=== PATIENT | female | born 1990 | race Caucasian/White ===

== ENCOUNTER 2019-07-26 10:49 | Emergency (ER) | payer OTHER ==
[~2019-07-26] VITALS: Ht 170.2 cm; Wt 56.7 kg
[2019-07-26 10:57] VITALS: BP 128/72
--- NOTE | 2019-07-26 11:08 | NUR ---
PATIENT WHEELCHAIR ASSISTED TO BED 6.
--- NOTE | 2019-07-26 11:31 | NUR ---
PT PRESENTS TO THE ED WITH C/O PALPITATION AND SHAKINESS SINCE 07/17/19. PT STATES THAT SHE HAS BEEN TO 3 HOSPITALS IN THE LAST 7 DAYS. PT WAS SEEN BY PCP THIS MORNING, DID EKG AND REFRRED PT TO ED. EKG SHOWED ICRBBB. PT DENIES ANY CHEST PAIN, SOB, DIFFICULTY BREATHING, AND V/D AT THIS TIME. PT REPORTS NAUSEA AT THIS TIME THAT HAS BEGAN 30 MIN AGO. PT DENIES PAIN AT THIS TIME. PT IS SHAKING AT HER JAW AND STATES "I DONT KNOW WHAT IS CAUSING THE SHAKING." PT STATES WHILE SHE WAS AT HER DOCTORS OFFICE SHE WAS EXPERIENCING SOB, PALPITATIONS, AND "UNCONTROLLABLE SHAKING THROUGH MY WHOLE BODY." PT IS POSITIONED FOR COMFORT, HOB ELEVATED, BED RAIL UP X 2 FOR PT SAFETY. ER MD AWARE OF PT STATUS. NKA PMH: RAPID HEART BEAT, LOWER BACK SURGERY RX: FLECAINIDE, NORCO FOR BACK PAIN (LAST TAKEN AT 0800 TODAY)
--- NOTE | 2019-07-26 11:44 | NUR ---
XRAY AT BEDSIDE.
[2019-07-26 12:04] LABS: APPEARANCE,URINE CLEAR (CLEAR); BILIRUBIN,URINE NEGATIVE (NEGATIVE); BLOOD, URINE NEGATIVE (NEGATIVE); COLOR,URINE YELLOW (YELLOW); LEUKOCYTE ESTERASE ,URINE TRACE (NEGATIVE); NITRITE, URINE NEGATIVE (NEGATIVE); PH,URINE 7.5 (5.0-9.0); UGLUCOSE NEGATIVE (NEGATIVE)
[2019-07-26 12:11] LABS: BASOPHILS % (AUTO) 0.2 % (0.0-2.0); EOSINOPHILS % (AUTO) 0.3 % (0.0-4.0); HEMATOCRIT 38.8 % (36-48); LYMPHOCYTES # (AUTO) 1.7 K/uL (2.5-16.5); LYMPHOCYTES % (AUTO) 24.4 % (20.5-51.1); MEAN CORPUSCULAR HEMOGLOBIN 30 pg (27-31); MEAN CORPUSCULAR HGB CONC 34 g/dL (33-37); MEAN CORPUSCULAR VOLUME 90.3 fL (80-94); MONOCYTES # (AUTO) 0.3 K/uL (0.8-1.0); MONOCYTES % (AUTO) 4.2 % (1.7-9.3); NEUTROPHILS % (AUTO) 70.9 % (42.2-75.2); PLATELET COUNT (AUTO) 254 K/uL (140-450); RED BLOOD CELL COUNT(AUTO) 4.29 MIL/uL (4.20-5.40); RED CELL DISTRIBUTION WIDTH 13.9 % (11.6-13.7); WHITE BLOOD COUNT (AUTO) 7.1 K/uL (4.8-10.8)
--- NOTE | 2019-07-26 12:15 | NUR ---
PT RESTING IN BED WAITING FOR FAMILY TO ARRIVE. WILL CONTINUE TO MONITOR.
--- NOTE | 2019-07-26 12:21 | NUR ---
PT REPORTS HEADACHE WITH PRESSURE. ER MD MADE AWARE. ORDERS TO FOLLOW.
[2019-07-26] MEDS ORDERED: IBUPROFEN 600 MG TAB PO ONE (12:25)
--- NOTE | 2019-07-26 12:27 | NUR ---
PT RESTING AT BEDSIDE USING CELLPHONE. PT ON MONITOR, VSS. WILL CONTINUE TO MONITOR.
[2019-07-26 12:32] LABS: ALBUMIN 4.1 g/dL (3.4-5.0); ANION GAP 12.3 (8-16); CARBON DIOXIDE 30.4 mmol/L (21-32); CREATININE 0.6 mg/dL (0.6-1.3); POTASSIUM 3.7 mmol/L (3.5-5.1); TOTAL BILIRUBIN 0.3 mg/dL (0.0-1.0)
[2019-07-26 12:37] LABS: RBC,URINE 0-5 /HPF (0-5); WBC,URINE 0-5 /HPF (0-5)
[2019-07-26 12:41] LABS: FREE T4 (FREE THYROXINE) 1.15 ng/dL (0.76-1.46); THYROID STIMULATING HORMONE 0.48 uIU/mL (0.34-3.74)
[2019-07-26] MEDS ORDERED: LORazepam 1 MG TAB PO ONE (13:30)
[2019-07-26 13:48] VITALS: BP 128/81
== END 2019-07-26 13:48 | disposition home or self-care (01) ==
LOC: MED 10:49
DX: R00.2 Palpitations (principal); Z98.890 Other specified postprocedural states
CPT/HCPCS: 36415; 71045; 80053; 81001; 81025; 83880; 84439; 84443; 84484; 85025; 87086; 93005; 99284; Q0092